=== PATIENT | male | born 1965 | race Caucasian/White ===

== ENCOUNTER 2018-02-19 06:43 | Day surgery (SDC) | payer OTHER ==
[2018-02-19] VITALS (12 sets, daily range): BP systolic 98–120; BP diastolic 58–87; PULSE 62–89; TEMP 97.6
[~2018-02-19] VITALS: Ht 180.3 cm; Wt 93.2 kg
[~2018-02-19 06:43] MED LIST: ADVIL MIGRAINE200 MG PO; ASPIRIN 81M81 MG/TA2 PO; BENADRYL 50M50 MG/ML IV; BENADRYL25 M2 PO; BRILINTA90 MG PO; FLAGYL500 MG; LANTUS100 U/ML SC; LEVAQUIN 5500 MG/TA1 PO; LIPITOR 80MG80 MG PO; NEXIUM 40MG40 MG PO; NITRO-DUR0.4 MG/PAT TD; NITROSTAT0.4 MG/TAB SL; NOVOLOG FLEX100 U/ML SQ; OMEGA-3 FISH1000 MG PO; PRINIVIL20 MG PO; PROTONIX 40MG T40 MG PO; PROTONIX20 MG PO; ROXICODONE 55 MG/TAB PO; SENOKOT S 50 MG1 TAB PO; TOPROL XL 50MG50 MG PO; VITAMIN D 1001000 IU PO; VITAMIN D32000 IU PO; ZESTRIL 20MG TA20 MG PO; ZYRTEC 10MG10 MG PO
[2018-02-19] MEDS ORDERED: PRILOSEC 20MG20 MG PO (07:04)
[2018-02-19] MEDS ORDERED: JANUMET 1000 MG1 TA1 PO (07:05)
[2018-02-19 07:08] LABS: HEMOGLOBIN 15.5 g/dl (13.5-18.0); MEAN CELL VOLUME 93 fl (80.0-100.0); MEAN CORPUSCULAR HEMOGLOBIN 33 pg (27.0-31.0); MEAN CORPUSCULAR HGB CONC 35 g/dl (33.0-37.0); MEAN PLATELET VOLUME 9.5 fl (7.4-10.4); PLATELET COUNT 226 K/mm3 (130-400); RED BLOOD COUNT 4.74 M/mm3 (4.20-5.60); REDCELL DISTRIBUTION WIDTH-CV 12.7 % (11.5-14.5)
[2018-02-19] MEDS ORDERED: IMDUR 60MG60 MG/TAB PO (07:09)
[2018-02-19] MEDS ORDERED: VITAMIN D 1001000 IU PO (07:10)
[2018-02-19] MEDS ORDERED: B-121000 MCG PO (07:10)
[2018-02-19] MEDS ORDERED: SINGULAIR 110 MG/TAB PO (07:10)
[2018-02-19] MEDS ORDERED: EXPECTORANT DM120 ML PO (07:11)
[2018-02-19] MEDS ORDERED: ZESTRIL 10MG10 MG PO (07:11)
[2018-02-19 07:14] LABS: PROTHROMBIN TIME 11.6 SECONDS (9.7-12.8)
[2018-02-19 07:18] LABS: CALCIUM 9.4 mg/dL (8.4-10.2); CREATININE, serum 1.01 mg/dL (0.66-1.25); POTASSIUM 4.5 mmol/L (3.4-5.0)
[2018-02-19] MEDS ORDERED: ISOSORBIDE MON120 MG PO (09:05)
== END 2018-02-19 14:11 | disposition home or self-care (01) ==
LOC: COL.CAR 06:43
PROVIDERS: Internal Medicine Cardiovascular Disease
DX: I10 Essential (primary) hypertension (principal); Z95.5 Presence of coronary angioplasty implant and graft; E78.5 Hyperlipidemia, unspecified; K21.9 Gastro-esophageal reflux disease without esophagitis; E11.49 Type 2 diabetes mellitus with other diabetic neurological complication; Z79.4 Long term (current) use of insulin; I07.1 Rheumatic tricuspid insufficiency; Z79.82 Long term (current) use of aspirin; Z79.01 Long term (current) use of anticoagulants
CPT/HCPCS: C1760; C1894; J2250; J3010; Q9967

== ENCOUNTER 2018-03-16 05:37 | Day surgery (SDC) | payer OTHER ==
[2018-03-16] VITALS (9 sets, daily range): BP systolic 94–124; BP diastolic 58–90; PULSE 63–91; TEMP 98
[~2018-03-16] VITALS: Ht 180.3 cm; Wt 92.5 kg
[~2018-03-16 05:37] MED LIST changes: +B-121000 MCG PO; +EXPECTORANT DM120 ML PO; +IMDUR 60MG60 MG/TAB PO; +ISOSORBIDE MON120 MG PO; +JANUMET 1000 MG1 TA1 PO; +PRILOSEC 20MG20 MG PO; +SINGULAIR 110 MG/TAB PO; +ZESTRIL 10MG10 MG PO
[2018-03-16 06:23] LABS: HEMOGLOBIN 14.6 g/dl (13.5-18.0)
[2018-03-16 06:31] LABS: INR 0.9 (0.8-3.0); PROTHROMBIN TIME 10.7 SECONDS (9.7-12.8)
[2018-03-16 06:35] LABS: CALCIUM 9.6 mg/dL (8.4-10.2); CREATININE, serum 0.95 mg/dL (0.66-1.25); POTASSIUM 4.2 mmol/L (3.4-5.0)
[2018-03-16] MEDS ORDERED: PRINIVIL10 MG PO (06:41)
[2018-03-16] MEDS ORDERED: NORCO 325 MG-51 TAB PO (09:29)
== END 2018-03-16 11:37 | disposition home or self-care (01) ==
LOC: SDCO 05:37
PROVIDERS: Surgery
DX: K40.90 Unilateral inguinal hernia, without obstruction or gangrene, not specified as recurrent (principal); I25.10 Atherosclerotic heart disease of native coronary artery without angina pectoris; E11.9 Type 2 diabetes mellitus without complications; Z79.84 Long term (current) use of oral hypoglycemic drugs; Z79.01 Long term (current) use of anticoagulants; Z79.82 Long term (current) use of aspirin; Z79.899 Other long term (current) drug therapy; I10 Essential (primary) hypertension; G47.30 Sleep apnea, unspecified; K21.9 Gastro-esophageal reflux disease without esophagitis; Z95.5 Presence of coronary angioplasty implant and graft; G47.33 Obstructive sleep apnea (adult) (pediatric)
CPT/HCPCS: C1781; J0690; J1100; J1885; J2405; J2704; J3010; J7030

== ENCOUNTER 2020-02-17 06:40 | Day surgery (SDC) | payer OTHER ==
[~2020-02-17] VITALS: Ht 180.3 cm; Wt 94.3 kg
[2020-02-17] VITALS (340 sets, daily range): BP systolic 101–136; BP diastolic 60–97; PULSE 63–81; TEMP 97.8–98.3; O2SAT 90–100
[~2020-02-17 06:40] MED LIST changes: +NORCO 325 MG-51 TAB PO; +PRINIVIL10 MG PO
[2020-02-17] MEDS ORDERED: ISOSORBIDE MON120 MG PO (07:32)
[2020-02-17] MEDS ORDERED: PLAVIX 75MG TAB75 MG PO (07:34)
[2020-02-17] MEDS ORDERED: TRIAMCINOLONE A15 G3 TP (07:35)
[2020-02-17] MEDS ORDERED: VANICREAM1 CRE TD (07:37)
[2020-02-17 08:07] LABS: HEMATOCRIT 41.3 % (42.0-52.0); HEMOGLOBIN 14.6 g/dl (13.5-18.0); MEAN CELL VOLUME 90 fl (80.0-100.0); MEAN CORPUSCULAR HEMOGLOBIN 32 pg (27.0-31.0); MEAN CORPUSCULAR HGB CONC 35 g/dl (33.0-37.0); PLATELET COUNT 188 K/mm3 (130-400); RED BLOOD COUNT 4.57 M/mm3 (4.20-5.60); REDCELL DISTRIBUTION WIDTH-CV 12.6 % (11.5-14.5)
[2020-02-17 08:14] LABS: CREATININE, serum 0.89 (0.66-1.25)
[2020-02-17 08:15] LABS: CALCIUM 9.3 mg/dL (8.4-10.2); POTASSIUM 4.1 mmol/L (3.4-5.0); PROTHROMBIN TIME 12.1 SECONDS (9.7-12.8)
[2020-02-17 08:33] LABS: PARTIAL THROMBOPLASTIN TIME 32.8 SECONDS (26.0-37.0)
--- NOTE | 2020-02-17 08:54 | NUR ---
SEE MERGE DOCUMENTATION FOR MEDICATION ADMINISTRATION AND INTRA/POST PROCEDURE SEDATION ASSESSMENTS.
--- NOTE | 2020-02-17 10:45 | NUR ---
Patient transferred to [facility] via stretcher by construction laborer RN with no complications. Patient connected to bedside monitor, vital signs stable, full assessment complete. Patient has some complaints of chest pressure 5/10. Dr. Reese notified and orders received. Bed in lowest position, side rails up x2, call light within reach.
--- NOTE | 2020-02-17 11:00 | NUR ---
Patient is having increased chest pressure rating 5/10 pain. Patient states its intermittent. Dr. Reese notified and orders received to increase Nitro gtt to 20 mcg/min and give morphine at this time. EKG also ordered.
--- NOTE | 2020-02-17 11:00 | NUR ---
Patient's right radial site is oozing just slightly. 1cc added to TR band for a total of 15cc in TR band at this time.
--- NOTE | 2020-02-17 11:41 | NUR ---
Right radial site stable, oozing has stopped. TR band deflated by 1cc for a total of 14cc left in the TR band.
--- NOTE | 2020-02-17 13:00 | NUR ---
TR band deflated by 3cc with no complications. 11cc air remain in TR band at this time.
--- NOTE | 2020-02-17 13:40 | NUR ---
Right radial site assessed. Site is soft with no hematoma, scant drainage, and no new oozing. TR band deflated by 2cc at this time with no complications.
--- NOTE | 2020-02-17 15:00 | NUR ---
TR Band deflated by 5cc with no complications.
--- NOTE | 2020-02-17 15:15 | NUR ---
TR band deflated by 2cc with no complications. 2cc remain in TR band at this time.
--- NOTE | 2020-02-17 18:15 | NUR ---
Patient's TR band taken off right radial site, area assessed with no complications. Area around site cleaned up and bandaid placed to right radial site at this time. Patient has no complaints or concerns.
--- NOTE | 2020-02-17 19:05 | NUR ---
Bedside shift report given to SD Centeno. Care handed over at this time.
--- NOTE | 2020-02-17 19:44 | NUR ---
nitroglycerin drip discontinued at 1500, pt currently has drip going at 20 mcg/min. Called DR. Singh to clarify and orders to continue drip at 20 mcg/min on steady and also accuchecks ACHS in low sliding scale. will put orders in.
[2020-02-18] VITALS (477 sets, daily range): BP systolic 107–122; BP diastolic 75–86; PULSE 70–83; TEMP 97.9–98.1; O2SAT 74–100
[2020-02-18 08:02] LABS: BASO % 0.5 % (0.0-2.0); EOS # 0.2 (0.0-0.7); EOS % 3.8 % (0-4.0); GRAN % 69.7 % (42.2-75.2); HEMATOCRIT 42.3 % (42.0-52.0); HEMOGLOBIN 14.8 g/dl (13.5-18.0); LYMPH % 16.8 % (20.0-51.0); MEAN CELL VOLUME 93 fl (80.0-100.0); MEAN CORPUSCULAR HEMOGLOBIN 33 pg (27.0-31.0); MEAN CORPUSCULAR HGB CONC 35 g/dl (33.0-37.0); MONO # 0.5 (0.1-0.6); MONO % 8.9 % (1.7-9.3); PLATELET COUNT 181 K/mm3 (130-400); RED BLOOD COUNT 4.56 M/mm3 (4.20-5.60); REDCELL DISTRIBUTION WIDTH-CV 12.9 % (11.5-14.5)
--- NOTE | 2020-02-18 08:04 | NUR ---
REPORT GIVEN AT BEDSIDE TO SD DRAPER.
[2020-02-18 08:19] LABS: CALCIUM 9.3 mg/dL (8.4-10.2); CREATININE, serum 0.89 (0.66-1.25); POTASSIUM 4.6 mmol/L (3.4-5.0)
[2020-02-18] MEDS ORDERED: TOPROL XL 50MG50 MG PO (09:39)
[2020-02-18] MEDS ORDERED: RANEXA 500MG T500 MG PO (09:39)
--- NOTE | 2020-02-18 11:31 | NUR ---
SW met with the patient to discuss discharge plan. The patient lives in [place] with his , Raine (ph#[phone]). He reports independence with ADLs and does not have any DME. The patient's PCP is Dr. Blair at [facility] and he receives his medications on [address]. He reports no difficulties obtaining his meds. The patient does not have advanced directives in EMR, but he reports that he does have them completed and at home. He states that his daughter, Nola Reyes (ph#[phone]), is his DPOA-HC. Nola lives in [place]. The patient plans to return home with his upon discharge. No additional needs at this time.
--- NOTE | 2020-02-18 15:03 | NUR ---
Pt assessment completed, medications administered per DEC. Pt states he has had some chest pain rating it 3/10, states it is chronic. Nitro gtt running this morning, dc'd by cardiology. LFA IV flushed w/o complications. VSS. Pt denies any other dizziness, N/V/D. Rt radial site covered w/ bandaid. CDI. Pt discharged this afternoon at 1345. Escorted out by ambulation, picked him up. IV dc'd w/o complications and catheter tip intact.
== END 2020-02-18 14:00 | disposition home or self-care (01) ==
LOC: COL.CAR 06:40 → IMCU 12:43 → COL.CAR 02-18 14:00
PROVIDERS: Internal Medicine Cardiovascular Disease
DX: I25.10 Atherosclerotic heart disease of native coronary artery without angina pectoris (principal); I10 Essential (primary) hypertension; Z95.5 Presence of coronary angioplasty implant and graft; K21.9 Gastro-esophageal reflux disease without esophagitis; E11.40 Type 2 diabetes mellitus with diabetic neuropathy, unspecified; E78.5 Hyperlipidemia, unspecified; G47.33 Obstructive sleep apnea (adult) (pediatric); Z90.49 Acquired absence of other specified parts of digestive tract; I07.1 Rheumatic tricuspid insufficiency; Z88.0 Allergy status to penicillin; Z79.02 Long term (current) use of antithrombotics/antiplatelets; Z79.899 Other long term (current) drug therapy; Z79.82 Long term (current) use of aspirin; Z79.84 Long term (current) use of oral hypoglycemic drugs; Z87.891 Personal history of nicotine dependence
CPT/HCPCS: OP; C9600; J0583; J1644; J1815; J2270

== ENCOUNTER 2022-12-13 09:00 | Day surgery (SDC) | payer OTHER ==
[~2022-12-13] VITALS: Ht 180.3 cm; Wt 92.2 kg
[~2022-12-13 09:00] MED LIST changes: +PLAVIX 75MG TAB75 MG PO; +RANEXA 500MG T500 MG PO; +TRIAMCINOLONE A15 G3 TP; +VANICREAM1 CRE TD
[2022-12-13] MEDS ORDERED: JANUMXR1000-50 PO (09:57)
[2022-12-13] MEDS ORDERED: RANEXA1000 MG PO (09:58)
[2022-12-13] MEDS ORDERED: IMDUR 60MG60 MG/TAB PO (10:00)
[2022-12-13 10:30] VITALS: BP 93/63; PULSE 80; TEMP 96.8
[2022-12-13 10:45] VITALS: BP 102/77; PULSE 69
[2022-12-13 11:00] VITALS: BP 107/75; PULSE 69
--- NOTE | 2022-12-13 11:05 | NUR ---
1030- PATIENT RETURNS TO [facility] VIA CART. PT AWAKE AND ALERT. RESPIRATIONS UNLABORED. AMBULATED TO RECLINER CHAIR WITH 2:1 SBA. PT DENIES NAUSEA OR ABDOMINAL PAIN. HOOKED UP TO MONITOR AND VS OBTAINED. CALL LIGHT AT SIDE AND SUPPORT PERSON ANGLE PRESENT. 1035- PATIENT TOLERATING DIET PEPSI AND MUFFIN WITHOUT NAUSEA. 1038- DR. BLAKELY IN ROOM SPEAKING WITH PATIENT. 1055- D/C INSTRUCTIONS REVIEWED WITH PATIENT. PT VERBALIZED UNDERSTANDING AND A COPY OF INSTRUCTIONS PROVIDED IN D/C FOLDER. 1100- PATIENT DRESSES SELF. 1105- PATIENT DISCHARGED FROM UNIT VIA W/C TO A PERSONAL VEHICLE. PT LEFT HOSPITAL IN STABLE CONDITION.
[2022-12-13 11:28] VITALS: BP 120/84; PULSE 74; TEMP 97.4
== END 2022-12-13 11:05 | disposition home or self-care (01) ==
LOC: SDCO 09:00
DX: Z12.11 Encounter for screening for malignant neoplasm of colon (principal); D12.0 Benign neoplasm of cecum; K64.0 First degree hemorrhoids; E11.49 Type 2 diabetes mellitus with other diabetic neurological complication; G47.33 Obstructive sleep apnea (adult) (pediatric); K21.9 Gastro-esophageal reflux disease without esophagitis; I25.10 Atherosclerotic heart disease of native coronary artery without angina pectoris; Z95.5 Presence of coronary angioplasty implant and graft; Z79.899 Other long term (current) drug therapy; Z79.84 Long term (current) use of oral hypoglycemic drugs
CPT/HCPCS: J2704; J3010; J7120